=== PATIENT | male | born 1945 | race Caucasian/White ===

== ENCOUNTER 2019-12-09 17:45 | Outpatient (CLI) | payer SELFPAY | END 2019-12-09 17:46 | disposition EMS.NT | LOC: EMS 17:45 | PROVIDERS: ATTEND Surgery | DX: R55 Syncope and collapse (principal) ==

== ENCOUNTER 2020-01-16 18:25 | Outpatient (CLI) | payer SELFPAY | END 2020-01-16 18:26 | disposition critical access hospital (66) | LOC: EMS 18:25 | PROVIDERS: ATTEND Surgery | DX: R41.82 Altered mental status, unspecified (principal) | CPT/HCPCS: A0425; A0427 ==

== ENCOUNTER 2020-01-16 18:52 | Emergency (ER) | payer SELFPAY ==
--- NOTE | 2020-01-16 19:01 | ED Physician Documentation ---
PD HPI FOCAL NEURO - Stated complaint Stated Complaint: CVA - History obtained from History obtained from: Family, EMS - Additional information Additional information: 74-year-old gentleman presents by ambulance for altered mental status and concern for stroke because of expressive aphasia. Reportedly does not take any prescription medications and does not see doctors. He is accompanied by his nephew who came to visit. They state a house on the same property. They noticed that yesterday the patient had taken the newspaper in, but did not today. As such the time of onset is presumed to be sometime after yesterday morning. Patient is unable to give any history due to aphasia. Blood sugar prior to arrival was in the 130s. Blood pressure was about 140/80. The nephew says the patient does not have any issues with substances or alcohol. Review of Systems Unable to obtain: Confused PD PAST MEDICAL HISTORY - Past Medical History Past Medical History: No - Living Situation Living Situation: reports: Alone - Social History Does the pt smoke?: No Does the pt drink ETOH?: No Does the pt have substance abuse?: No - Family History Family history: reports: Non contributory PD ED PE NORMAL - Vitals Vital signs reviewed: Yes - General General: Other (He is nonverbal, he is looking around with potentially a left gaze preference. He does grimace every now and then.) - HEENT HEENT: PERRL, Other (Left gaze preference, does not seem to respond to threat on the right.) - Neck Neck: Supple, no meningeal sign, No bony TTP - Cardiac Cardiac: RRR, No murmur - Respiratory Respiratory: No respiratory distress, Clear bilaterally - Abdomen Abdomen: Non tender - Back Back: No CVA TTP, No spinal TTP - Derm Derm: Normal color, Warm and dry - Extremities Extremities: No deformity, No tenderness to palpate, Normal ROM s pain NIHSS - Time Time: 18:55 - Level of Consciousness Level of consciousness: (0) Alert, Keenly responsive LOC Questions: (2) Answers neither correct LOC Commands: (2)Performs none - Gaze Best Gaze: (1) Partial gaze palsy - Visual Visual: (2) Complete Hemianopia - Facial Palsy Facial Palsy: (0) Normal, symmetrical movement - Motor Arms (both separate) Motor Arm (right): (1) Drift Motor Arm (left): (0) No drift - Motor Legs (both separate) Motor Leg (right): (2) Some effort against gravity Motor Leg (left): (2) Some effort against gravity - Limb Ataxia Limb Ataxia: (0) Absent - Sensory Sensory: (1) Swok-tj-wqnqzmxl loss (Seems to grimace to painful stimulus in the right lower extremity but not the right upper extremity) - Best Language Best Language: (2) Severe aphasia - Dysarthria Dysarthria: (0) Normal - Extinction and Inattention (formally neg Extinction and inattention: (2) Profound manjinder-inattention or extinction to more than one modality - Total Score/Results Total Score/Result: 17 Results - Vitals Vitals: Vital Signs - 24 hr 01/16/20 01/16/20 18:52 19:34 Temperature 37 C Heart Rate 70 71 Respiratory 22 18 Rate Blood Pressure 157/76 H 124/80 O2 Saturation 98 100 Oxygen O2 Source Room air - EKG (time done) 1913 Rate: Rate (enter#) (75) Rhythm: NSR (w pvc) Stephens: Normal Intervals: Normal AR, RBBB QRS: Normal Ischemia: Normal ST segments Compare to prior EKG: Old EKG unavailable - Labs Labs: Laboratory Tests 01/16/20 01/16/20 01/16/20 19:27 19:27 19:27 WBC 10.7 RBC 4.73 Hgb 15.0 Hct 42.7 MCV 90.3 MCH 31.7 H MCHC 35.1 RDW 11.9 L Plt Count VOCATIONAL DIRECTOR MPV 10.5 Neut # (Auto) 8.8 H Lymph # (Auto) 0.7 L Gates # (Auto) 1.1 H Eos # (Auto) 0.0 Baso # (Auto) 0.0 Absolute Nucleated RBC 0.00 Nucleated RBC % 0.0 Manual Slide Review Indicated WBC Morphology NORMAL APPEARANCE Platelet Estimate NORMAL (130-450,000) Platelet Morphology PLATELET CLUMPING RBC Morph Micro Appear NORMAL APPEARANCE PT 13.9 H INR 1.3 H Sodium 132 L Potassium 4.9 Chloride 97 L Carbon Dioxide 22 Anion Gap 13.0 BUN 48 H Creatinine 7.1 H* Estimated GFR (MDRD) 8 L Glucose 166 H Calcium 8.8 Total Bilirubin 4.1 H AST 22 ALT 28 Alkaline Phosphatase 84 Total Protein 7.0 Albumin 3.9 Globulin 3.1 Albumin/Globulin Ratio 1.3 Lipase 27 Ethyl Alcohol < 5.0 - Rads (name of study) CT Head/Angio Radiology: EMP read contemporaneously (Non con without sign of CVA but L ICA occlusion of unclear chronicity. Remote L OIL BOILER infarct) PD MEDICAL DECISION MAKING - ED course ED course: 74-year-old gentleman presents with strokelike symptoms of unclear chronicity. He took in his newspaper yesterday not today suggesting that it was probably sometime between yesterday morning and this morning. After initial evaluation the case was discussed by phone with Dr. Bita Meier, tele-neurology at [facility]. She agrees with my wet read of the angiography that shows a left carotid occlusion. She also agrees that he is not a TPA candidate given the unclear time course, but after reviewing the images with the vascular surgeon there and the radiologist they feel it is likely acute and he will be transferred to [facility] for potential clot retrieval. He also is found to have renal failure with unclear chronicity. This was discussed again with Dr. Meier. May limit some of their interventional abilities, does not change disposition. - Critical Care Time(min): 40 Time Includes: Direct patient care, Review records, Reassess patient, Document care, Coordinate care, Medical consult, Family consult for tx dec (Closest living relative is a brother, but he is demented. The nephew seems comfortable making decisions.), See progress note Data interpretation: Labs, Pulse ox Procedures included in critical care time: Peripheral IV Departure - Departure Disposition: 02 Transfer Acute Care Hosp Clinical Impression: Carotid occlusion, left Cerebrovascular accident (CVA) Qualifiers: CVA mechanism: occlusion Precerebral and cerebral artery: carotid artery Laterality of affected vessel: left Qualified Code(s): I63.232 - Cerebral infarction due to unspecified occlusion or stenosis of left carotid arteries Renal failure Qualifiers: Renal failure chronicity: unspecified chronicity Qualified Code(s): N19 - Unspecified kidney failure Condition: Critical
[2020-01-16] MEDS ORDERED: IOVERSOL 320 100 ML VIAL IVP ONE ×2 (19:19→19:26)
[2020-01-16 19:36] LABS: BASOPHILS % (AUTO) 0.2 %; EOSINOPHILS % (AUTO) 0.2 %; LYMPHOCYTES # (AUTO) 0.7 10^3/uL (1.5-3.5); LYMPHOCYTES % (AUTO) 6.7 %; MEAN CORPUSCULAR HEMOGLOBIN 31.7 pg (27.0-31.0); MEAN CORPUSCULAR HGB CONC 35.1 g/dL (32.0-36.0); MEAN CORPUSCULAR VOLUME 90.3 fL (80.0-94.0); MEAN PLATELET VOLUME 10.5 fL (7.4-11.4); MONOCYTES # (AUTO) 1.1 10^3/uL (0.0-1.0); NEUTROPHILS # (AUTO) 8.8 10^3/uL (1.5-6.6); NEUTROPHILS % (AUTO) 82.5 %; RED BLOOD COUNT 4.73 10^6/uL (4.70-6.10); RED CELL DISTRIBUTION WIDTH 11.9 % (12.0-15.0); WHITE BLOOD COUNT 10.7 x10^3/uL (4.8-10.8)
[2020-01-16 19:44] VITALS: BP 124/80
[2020-01-16 19:45] LABS: INR 1.3 (0.8-1.2); PT - PROTHROMBIN TIME 13.9 secs (9.9-12.6)
--- NOTE | 2020-01-16 19:46 | CT Report ---
PROCEDURE: ANGIO HEAD W/WO INDICATIONS: Strokelike symptoms CONTRAST: IV CONTRAST: Optiray 320 ml: 80 PO CONTRAST: *NO PO CONTRAST TECHNIQUE: Precontrast 4.5 mm thick angled axial sections acquired from the foramen magnum to the vertex. Afte r the administration of intravenous contrast, 1 mm thick sections acquired through the [place] is. Postcontrast 4.5 mm thick sections then re-acquired from the foramen magnum to the vertex. 3-di mensional nloadzq-qukrqrgeu-ryuaktmfam (MIP) and/or volume rendering reformats were acquired of the c entral intracranial vasculature. For radiation dose reduction, the following was used: automated ex posure control, adjustment of mA and/or kV according to patient size. COMPARISON: None FINDINGS: Image quality: Excellent. Anterior circulation: The left internal carotid artery is completely occluded from the level of the b ifurcation to the terminus. There is reconstitution of fairly normal-appearing flow/opacification in the left anterior cerebral artery circulation. However, the left middle cerebral artery demonstrates delayed and diminished opacification when compared with the right. There is an obvious decrease in th e number and caliber of vessels throughout the left MCA distribution. Posterior circulation: There is a possibility of vessels in the left [employer] territory, specifically in t he left parietal and posterior temporal lobes. It is unclear to what extent this is due to the dimini shed opacification of the left MCA versus a remote versus late subacute left [employer] territory infarct. T he visualized V4 segments and basilar artery are normal. Both posterior cerebral arteries demonstrate normal caliber. CSF spaces: Ventricles are normal in size and shape. Basal cisterns are patent. No extra-axial flu id collections. Brain: Age indeterminate infarct in the left parieto-occipital region, with hypoattenuation and loss of silvestre-white matter differentiation. This appears to be at least subacute as there is a very low att enuation of the brain region suggesting some cystic encephalomalacia. Chronic microvascular ischemic changes are present in the cerebral hemispheric white matter bilaterally. No acute intracranial hemor rhage demonstrated. Mild global cerebral volume loss. Skull and face: Calvarium and facial bones appear intact, without suspicious lesions. Sinuses: Visualized sinuses and mastoids are clear. IMPRESSION: Complete occlusion of the left internal carotid artery which is age-indeterminate. Diminished and delayed flow in the left MCA distribution, with markedly decreased number and size of arterial vessels in this territory. This is favored to represent acute failure of the collateralizati on in the left MCA territory. Relatively appearance of collateralized flow within the left anterior cerebral artery. Probable subacute infarct in the left posterior cerebral artery territory (parieto-occipital region). Findings were discussed with Dr. Mcgarry at time of interpretation. Reviewed by: Kit Perez MD on 01/16/2020 7:45 PM PDT Approved by: Kit Perez MD on 01/16/2020 7:45 PM PDT Station ID: [id number]
--- NOTE | 2020-01-16 19:51 | CT Report ---
PROCEDURE: ANGIO NECK W INDICATIONS: Stroke like symptoms CONTRAST: IV CONTRAST: Optiray 320 ml: 80 PO CONTRAST: *NO PO CONTRAST TECHNIQUE: After the administration of intravenous contrast, 1.5 mm axial sections acquired from the aortic arch to the [place]. Coronal 3-D maximum intensity projection (MIP) and/or volume rendering ref ormats were then performed. For radiation dose reduction, the following was used: automated exposur e control, adjustment of mA and/or kV according to patient size. COMPARISON: None. FINDINGS: There is complete occlusion of the left internal carotid artery shortly after its origin from the lef t carotid bifurcation. The right internal carotid artery is widely patent. There is no significant na rrowing or atherosclerotic disease within the bifurcations themselves. Common carotid arteries are un remarkable. Normal appearance of the vertebral arteries circulation throughout the neck. Included portions of the lung apices are clear. Thyroid normal in appearance. Submandibular and parot id glands are within normal limits. Degenerative changes in the cervical spine with no acute or suspi cious osseous lesion. IMPRESSION: Complete occlusion of the left internal carotid artery shortly after its origin from the left carotid bifurcation. Findings were discussed with Dr. Mcgarry. The estimate of stenosis included in the report of the imaging study was calculated using the NASCET method Reviewed by: Kit Perez MD on 01/16/2020 7:50 PM PDT Approved by: Kit Perez MD on 01/16/2020 7:50 PM PDT Station ID: [id number]
[2020-01-16 19:52] LABS: PLATELET ESTIMATE, MANUAL NORMAL (130-450,000) (NORMAL); PLATELET MORPHOLOGY PLATELET CLUMPING (NORMAL); RBC MORPHOLOGY (MULTIPLE) NORMAL APPEARANCE (NORMAL)
[2020-01-16 19:57] LABS: ALBUMIN 3.9 g/dL (3.2-5.5); ALBUMIN/GLOBULIN RATIO 1.3 (1.0-2.2); ALKALINE PHOSPHATASE 84 IU/L (42-121); ALT ALANINE AMINOTRANSFERASE 28 IU/L (10-60); AST ASPARTATE AMINOTRANSFERASE 22 IU/L (10-42); BILIRUBIN,TOTAL 4.1 mg/dL (0.2-1.0); BUN - BLOOD UREA NITROGEN 48 mg/dL (6-20); CALCIUM 8.8 mg/dL (8.5-10.3); CARBON DIOXIDE - CO2 22 mmol/L (21-32); CHLORIDE 97 mmol/L (101-111); CREATININE 7.1 mg/dL (0.6-1.2); GLUCOSE 166 mg/dL (70-100); LIPASE 27 U/L (22-51); SODIUM 132 mmol/L (135-145)
== END 2020-01-16 20:15 | disposition short-term general hospital (02) ==
LOC: EDUNIT# → ED 18:52
DX: I63.232 Cerebral infarction due to unspecified occlusion or stenosis of left carotid arteries (principal); R47.01 Aphasia; H53.47 Heteronymous bilateral field defects; R29.717 NIHSS score 17; N19 Unspecified kidney failure; I49.3 Ventricular premature depolarization; I45.10 Unspecified right bundle-branch block
CPT/HCPCS: 36415; 70496; 70498; 80053; 80320; 83690; 85025; 85610; 93005; 99291; Q9967

== ENCOUNTER 2020-12-13 21:07 | Outpatient (CLI) | payer MEDICARE | END 2020-12-13 21:08 | disposition E | LOC: EMS 21:07 ==